=== PATIENT | female | born 1965 | race Caucasian/White ===

== ENCOUNTER 2016-07-09 11:42 | Emergency (ER) | payer BC | END 2016-07-09 12:20 | disposition left against medical advice (07) | LOC: UCEAST 11:42 | DX: R58 Hemorrhage, not elsewhere classified (principal); Z53.21 Procedure and treatment not carried out due to patient leaving prior to being seen by health care provider ==

== ENCOUNTER 2017-03-08 10:03 | Emergency (ER) | payer BC ==
[2017-03-08 10:13] VITALS: BP 188/112
--- NOTE | 2017-03-08 10:47 | UC ---
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 (mod to sever pains) pains have involved shoulders/wrists/knees/hips toady awoke with right 3rd MCP swelling and pain no f/c 5 yrs agp had rash on right hip followed by arthralgias was treated for presumed Lyme disease despite negative test - History Of Current Complaint Chief Complaint: UCUpperExtremity Stated Complaint: JOINT PAIN Time Seen by Provider: 03/08/17 10:23 Hx Obtained From: Patient Hx Last Menstrual Period: 01/23/17 Onset/Duration: Gradual Onset, Lasting Weeks Severity Initially: Mild Severity Currently: Moderate Pain Intensity: 7 Associated Signs And Symptoms: Positive: Swelling, Redness - Allergies/Home Medications Allergies/Adverse Reactions: Allergies Allergy/AdvReac Type Severity Reaction Status Date / Time No Known Allergies Allergy Verified 03/08/17 10:13 PMH/Surg Hx/FS Hx/Imm Hx Previously Healthy: Yes - treated for Lyme Disease Cardiovascular History: Hypertension - states it is always high when nervous ( as she is today) and is otherwise in pre hypertensive stage - Surgical History Surgical History: Yes Surgery Procedure, Year, and Place: R ankle ORIF - Family History Known Family History: Positive: Cardiac Disease, Hypertension, Diabetes - Social History Alcohol Use: None Substance Use Type: None Smoking Status (MU): Never Smoked Tobacco Review of Systems Constitutional: Negative Skin: Negative Eyes: Negative ENT: Negative Respiratory: Negative Cardiovascular: Negative Gastrointestinal: Negative Genitourinary: Negative Motor: Negative Neurovascular: Negative Musculoskeletal: Arthralgia, Myalgia Neurological: Negative Psychological: Negative All Other Systems Reviewed And Are Negative: Yes Physical Exam Triage Information Reviewed: Yes Appearance: Well-Appearing, No Pain Distress, Well-Nourished Vital Signs: Initial Vital Signs Temp 98.8 F 03/08/17 10:08 Pulse 87 03/08/17 10:08 Resp 16 03/08/17 10:08 BP 188/112 03/08/17 10:08 Pulse Ox 99 03/08/17 10:08 Vital Signs Reviewed: Yes Eyes: Positive: Conjunctiva Clear ENT: Positive: Hearing grossly normal, Tonsillar exudate, Trismus, Muffled/ hoarse voice. 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
[2017-03-08 14:40] LABS: Hematocrit 39 % (35-47); Hemoglobin 13.1 g/dl (12.0-16.0); Mean Corpuscular HGB Conc 33 g/dl (31-36); Mean Corpuscular Hemoglobin 28 pg (27-31); Mean Corpuscular Volume 83 fL (80-97); Mean Platelet Volume 8 um3 (7.4-10.4); Red Blood Count 4.73 10^6/ul (4.0-5.4); Red Cell Distribution Width 15 % (10.5-15); White Blood Count 8.1 10^3/ul (3.5-10.8)
[2017-03-08 15:39] LABS: Albumin 3.8 g/dL (3.2-5.2); BUN/Creatinine Ratio 17.8 (8-20); Calcium 9.3 mg/dL (8.6-10.3); EGFR African American 107.7 (>60); EGFR Non-African American 83.7 (>60); Globulin 3.5 g/dL (2-4); Potassium 4.2 mmol/L (3.5-5.0); Total Bilirubin 0.4 mg/dL (0.2-1.0); Total Protein 7.3 g/dL (6.4-8.9)
[2017-03-08 16:10] LABS: Erythrocyte Sed Rate 38 mm/Hr (0-30)
--- NOTE | 2017-03-09 14:20 | UC ---
Progress - Progress Note Progress Note: please call this pt and let her know that an elevation in a nonspecific marker for inflammation was noted on her lab work. pt should f/u with pcp.
== END 2017-03-08 10:56 | disposition home or self-care (01) ==
LOC: UCEAST 10:03
DX: M25.512 Pain in left shoulder (principal); M25.511 Pain in right shoulder; M25.532 Pain in left wrist; M25.531 Pain in right wrist; M25.562 Pain in left knee; M25.561 Pain in right knee; M25.552 Pain in left hip; M25.551 Pain in right hip; M19.041 Primary osteoarthritis, right hand; I10 Essential (primary) hypertension
CPT/HCPCS: 36415; 80053; 85025; 85652; 86038; 86618; 99212; G0463